=== PATIENT | female | born 1985 | race American Indian/Alaskan Native ===

== ENCOUNTER 2021-10-08 02:52 | Emergency (ER) | payer OTHER, MEDICAID ==
[2021-10-08 03:03] VITALS: BP 137/79; PULSE 105
[2021-10-08] MEDS ORDERED: Ketorolac 30 MG/ML SDV IM ONE (03:17)
[2021-10-08] MEDS ORDERED: Albuterol/Ipratropium 3.0-0.5 MG/3 ML Neb Soln NEB ONE (03:17)
== END 2021-10-08 04:02 ==
LOC: JP.ED 02:52
DX: T14.8XXA Other injury of unspecified body region, initial encounter (principal); J45.20 Mild intermittent asthma, uncomplicated; F17.210 Nicotine dependence, cigarettes, uncomplicated; E66.9 Obesity, unspecified; Z68.33 Body mass index [BMI] 33.0-33.9, adult; Z90.49 Acquired absence of other specified parts of digestive tract; V48.5XXA Car driver injured in noncollision transport accident in traffic accident, initial encounter; Y92.410 Unspecified street and highway as the place of occurrence of the external cause
CPT/HCPCS: 94640; 96372; 99283; J1885; J7620